=== PATIENT | female | born 1995 | race Two or more races ===

== ENCOUNTER 2020-08-12 18:49 | Emergency (ER) | payer BC ==
[~2020-08-12] VITALS: Ht 165.1 cm; Wt 144.2 kg
[2020-08-12] MEDS ORDERED: ASPIRIN 325 MG TABLET PO ONE (19:15)
[2020-08-12] MEDS ORDERED: NITROGLYCERIN PREMIX 250 ML IV ONE (19:15)
[2020-08-12 19:20] LABS: BILIRUBIN,URINE NEGATIVE (NEG); CLARITY,URINE CLEAR; COLOR,URINE YELLOW; NITRITE,URINE NEGATIVE (NEG); PH,URINE 7.5 (<5.0-8.0); PROTEIN,URINE NEGATIVE (NEG-TRACE)
--- NOTE | 2020-08-12 19:27 | PHYS DOC ---
General Adult EDM: Chief Complaint: MULTIPLE COMPLAINTS HPI: HPI: Patient is a 25 year old female who presents with 2 days of sharp left chest pain, Left arm pain, soa, dizziness, palpitations. She states that nothing makes it better or worse. She states it doesn't matter what she is doing. The pain com es and goes but seems to be worsening. She states that at the end of july she had a very heavy period with large clots and that's when most of these symptoms began. She states that she does have heavy periods but this was heavier than usual. She states she is no longer has any vaginal bleeding. She states no pain at this time or symptoms at this time. Patient is hypertensive in the ED. She states that she has not been to a doctor in a lot of years. Review of Systems: Review of Systems: Constitutional: Denies fever or chills. [] Eyes: Denies change in visual acuity. [] HENT: Denies nasal congestion or sore throat. [] Respiratory: Denies cough. +shortness of breath. [] Cardiovascular: + chest pain or denies edema. + Palpitations] GI: Denies abdominal pain, nausea, vomiting, bloody stools or diarrhea. [] : Denies dysuria. + Heavy Period[] Musculoskeletal: Denies back pain or joint pain. +Left arm pain [] Integument: Denies rash. [] Neurologic: +Dizziness. Denies headache, focal weakness or sensory changes. [] Endocrine: Denies polyuria or polydipsia. [] Lymphatic: Denies swollen glands. [] Psychiatric: Denies depression or anxiety. [] Heart Score: HEART Score for Chest Pain: HEART Score for Chest Pain Response (Comments) Value History Slighlty/Non-Suspicious 0 ECG Normal 0 Age < 45 0 Risk Factors 1 or 2 Risk Factors 1 Troponin < Normal Limit 0 Total 1 Risk Factors: Risk Factors: DM, Current or recent (<one month) smoker, HTN, HLP, family history of CAD, obesity. Risk Scores: Score 0 - 3: 2.5% MACE over next 6 weeks - Discharge Home Score 4 - 6: 20.3% MACE over next 6 weeks - Admit for Clinical Observation Score 7 - 10: 72.7% MACE over next 6 weeks - Early Invasive Strategies Current Medications: Current Medications Medications (Trade) Dose Ordered Sig/Maximilian Start Time Stop Time Status Last Admin Dose Admin Aspirin (Ruben Aspirin) 325 mg 1X ONCE 08/12/20 19:15 08/12/20 19:16 UNV Nitroglycerin/ Dextrose 250 ml @ 3 mls/hr 1X ONCE 08/12/20 19:15 08/16/20 06:34 UNV Physical Exam: PE: Constitutional: Well developed, well nourished, no acute distress, non-toxic appearance. [] HENT: Normocephalic, atraumatic, bilateral external ears normal, oropharynx moist, no oral exudates, nose normal. [] Eyes: PERRLA, EOMI, conjunctiva normal, no discharge. [] Neck: Normal range of motion, no tenderness, supple, no stridor. [] Cardiovascular:Heart rate regular tachycardic rhythm, no murmur [] Lungs & Thorax: Bilateral breath sounds clear to auscultation [] Abdomen: Bowel sounds normal, soft, no tenderness, no masses, no pulsatile masses. [] Skin: Warm, dry, no erythema, no rash. [] Back: No tenderness, no CVA tenderness. [] Extremities: No tenderness, no cyanosis, no clubbing, ROM intact, no edema. [] Neurologic: Alert and oriented X 3, normal motor function, normal sensory function, no focal deficits noted. [] Psychologic: Affect normal, judgement normal, mood normal. [] EKG: EK and read by Dr. Evans as sinus rhythm and no STEMI [] Radiology/Procedures: Radiology/Procedures: [] Impression: [facility] [address] [place] [address] IMAGING REPORT Signed PATIENT: ASHLEY RANKIN ACCOUNT: [id number] : 1995 LOCATION: ER AGE: 25 SEX: F EXAM STATUS: REG ER ORD. PHYSICIAN: LUCAS QUIROZ APRN REASON: chest pain PROCEDURE: PORTABLE CHEST 1V EXAM: CHEST 1 VIEW History: Chest pain COMPARISON: None available. TECHNIQUE: Single portable radiograph of the chest FINDINGS: The cardiac silhouette is unremarkable. The lungs are clear bilaterally. The costophrenic sulci are clear and well demarcated. IMPRESSION: No radiographic evidence of an acute cardiopulmonary process. Electronically signed by: Dayton Allen MD (08/12/2020 9:14 PM) [id number] DICTATED and SIGNED BY: DAYTON ALLEN MD DATE: 08/12/202113 Course & Med Decision Making: Course & Med Decision Making Pertinent Labs and Imaging studies reviewed. (See chart for details) See HPI. Speaks in full clear sentences. Ambulatory with a steady gait. Patient is morbidly obese. She denies smoking or being on any kind of controls. Lungs are clear to auscultation all lobes. She states that she does not have any current injury and when she is walking or moving her arms does not reproduce the chest pain. Skin pink warm and dry. Alert and oriented x4. Patient denies fever, cough, abdominal pain, nausea, vomiting, diarrhea, headache, vision changes, numbness or tingling, focal weakness. Abdomen is soft and nontender. After patient has settled down her blood pressures: 142/76 her heart rate is 88. Urine does show you urinary tract infection. EKG was sinus rhythm and no STEMI. Patient is 100% on room air. Hemoglobin is 8.7 but blood work was fairly unremarkable. Per PERC and Well's score her risk of PE is 0 or no risk. Since patient has been here she has complained of no symptoms. Chest x-ray shows no acute finding. D-dimer is normal. She has not had chest pain, shortness of air, dizziness, palpitations. Patient can follow-up with a material movers and her primary care physician. She will be given Keflex antibiotic. [] Rod Disclaimer: Rod Disclaimer: This electronic medical record was generated, in whole or in part, using a voice recognition dictation system. Departure Departure Impression: Primary Impression: Nonspecific chest pain Additional Impressions: Palpitations UTI (urinary tract infection) Qualified Codes: N39.0 - Urinary tract infection, site not specified Disposition: 01 DC HOME SELF CARE/HOMELESS Condition: STABLE Patient Instructions: Chest Pain (Nonspecific), [id number], Palpitations, Urinary Tract Infection Additional Instructions: Follow-up with your primary care physician as soon as possible. Also if you continue to have heavy vaginal bleeding I would follow-up with a material movers. Take Tylenol or ibuprofen for any pain you might have. Take medications as prescribed and drink plenty of fluids. Scripts Cephalexin (KEFLEX) 500 Mg Capsule 1 CAP PO BID for 7 Days, #14 CAP 0 Refills Prov: LUCAS QUIROZ APRN 08/12/20 LUCAS QUIROZ APRN Aug 12, 2020 19:27
[2020-08-12 19:29] LABS: BACTERIA,URINE FEW /HPF (0-FEW); RBC,URINE 0 /HPF (0-2)
[2020-08-12 19:31] LABS: U PREG PATIENT NEGATIVE (NEG)
[2020-08-12 20:17] LABS: BASO # 0.1 x10^3/uL (0.0-0.2); BASO % 1 % (0-3); EOS # 0.1 x10^3/uL (0.0-0.7); EOS % 1 % (0-3); HEMATOCRIT 26.3 % (36.0-47.0); HEMOGLOBIN 8.7 g/dL (12.0-15.5); LYMPH # 2.9 x10^3/uL (1.0-4.8); LYMPH % 25 % (24-48); MEAN CORPUSCULAR HEMOGLOBIN 28 pg (25-35); MEAN CORPUSCULAR HGB CONC 33 g/dL (31-37); MEAN CORPUSCULAR VOLUME 85 fL (79-100); MONO # 0.9 x10^3/uL (0.0-1.1); MONO % 8 % (0-9); NEUT # 7.5 x10^3/uL (1.8-7.7); NEUT % 65 % (31-73); PLATELET COUNT 431 x10^3/uL (140-400); RED BLOOD COUNT 3.11 x10^6/uL (3.50-5.40); RED CELL DISTRIBUTION WIDTH 13.1 % (11.5-14.5); WHITE BLOOD COUNT 11.5 x10^3/uL (4.0-11.0)
[2020-08-12 20:26] LABS: PROTHROMBIN TIME PATIENT 13.4 SEC (11.7-14.0)
[2020-08-12 20:29] LABS: D-DIMER < 0.27 ug/mlFEU (0.00-0.50)
[2020-08-12 20:33] LABS: CALCIUM 8.8 mg/dL (8.5-10.1); CREATININE 0.8 mg/dL (0.6-1.0); GFR 86.7; POTASSIUM 3.9 mmol/L (3.5-5.1)
[2020-08-12 20:38] LABS: ALBUMIN 2.9 g/dL (3.4-5.0); ALBUMIN/GLOBULIN RATIO 0.6 (1.0-1.7); TOTAL BILIRUBIN 0.1 mg/dL (0.2-1.0); TOTAL PROTEIN 7.7 g/dL (6.4-8.2)
[2020-08-12] MEDS ORDERED: cefTRIAXone IV Push 1 GM VIAL. IVP ONE (20:45)
[2020-08-12] MEDS ORDERED: IV NORMAL SALINE 1000ML BAG 1,000 ML IV ONE (20:45)
--- NOTE | 2020-08-12 21:17 | RAD ---
EXAM: CHEST 1 VIEW History: Chest pain COMPARISON: None available. TECHNIQUE: Single portable radiograph of the chest FINDINGS: The cardiac silhouette is unremarkable. The lungs are clear bilaterally. The costophrenic sulci are clear and well demarcated. IMPRESSION: No radiographic evidence of an acute cardiopulmonary process. Electronically signed by: Dayton Allen MD (08/12/2020 9:14 PM) [id number]
[2020-08-12] MEDS ORDERED: CEPH-264 PO (21:20)
[2020-08-12 21:43] VITALS: BP 156/82
== END 2020-08-12 21:55 | disposition home or self-care (01) ==
LOC: ER 18:49
DX: N39.0 Urinary tract infection, site not specified (principal); R07.89 Other chest pain; M79.602 Pain in left arm; R42 Dizziness and giddiness; R00.2 Palpitations; R06.02 Shortness of breath
CPT/HCPCS: 36415; 71045; 80053; 81001; 81025; 83690; 83880; 84443; 84484; 85025; 85379; 85610; 87086; 93005; 96361; 96374; 99285; J0696; J7030